=== PATIENT | male | born 1985 | race African-American/Black ===

== ENCOUNTER 2018-09-21 20:21 | Emergency (ER) | payer OTHER ==
[~2018-09-21] VITALS: Ht 177.8 cm; Wt 74.5 kg
[2018-09-22] MEDS ORDERED: KETOROLAC 60 MG/2 ML VIAL (J1885) IM ONE (00:15)
[2018-09-22] MEDS ORDERED: diazePAM 5 MG TAB PO ONE (00:15)
[2018-09-22] MEDS ORDERED: GABAPENTIN 300 MG CAP PO ONE (00:15)
[2018-09-22] MEDS ORDERED: LIDOCAINE 5% (LIDODERM) PATCH TD ONE (01:15)
[2018-09-22] MEDS ORDERED: BACLOFEN 10 MG TAB PO ONE (01:15)
[2018-09-22] MEDS ORDERED: KETO10TAB PO (02:01)
[2018-09-22] MEDS ORDERED: PRED20TA PO (02:01)
[2018-09-22] MEDS ORDERED: BACL10TA2 PO (02:01)
[2018-09-22 02:11] VITALS: BP 125/57
--- NOTE | 2018-09-22 08:16 | REP ---
Lumbar spine series: Five views. History: Pain after injury. Findings: Five views of the lumbar spine demonstrate a mild levoconvex lumbar curvature. Lumbar vertebral body heights are preserved. Alignment is otherwise normal. There is mild disc space narrowing at L4-5. No fracture or collapse is seen. There is no evidence of spondylolysis or spondylolisthesis. Sacrum and SI joints are unremarkable. Psoas margins are intact. Visualized bowel gas pattern is unremarkable. Impression: Mild levoconvex curvature. Mild disc space narrowing at L4-5. Otherwise negative. Electronically Signed by Vernon Ortiz MD 09/22/2018 03:47 P
[2018-09-22] MEDS ORDERED: **NOTE PATIENT COMMENT** MISC XX SCH (21:00)
== END 2018-09-22 02:12 | disposition home or self-care (01) ==
LOC: M ED 20:21
DX: M54.40 Lumbago with sciatica, unspecified side (principal)
CPT/HCPCS: 72110; 96372; 99283; J1885